=== PATIENT | male | born 1965 | race Two or more races ===

== ENCOUNTER 2017-03-08 08:51 | Emergency (ER) | payer OTHER ==
[~2017-03-08] VITALS: Ht 175.3 cm; Wt 63.5 kg
--- NOTE | ~2017-03-08 | CR243 ---
[facility] A Service of [facility] & [facility] RADIOLOGY TEXT RESULTS PATIENT: ALDA HUANG LOCATION: [facility] : 65 UNIT #: [id number] AGE: [address]: Steven Mae MD SEX: M ORDER DR: [id number] [facility] [address] [place], [place] [address] [id number] E MR#: [id number] Acc #: [id number] NAME: ALDA HUANG : 1965 SEX: M STUDY DATE/TIME: 03/08/2017 10:07 UNIT: [facility] ROOM: STUDY DESCRIPTION: CR Thoracic Spine 3 Views Attending Physician: Steven Mae M.D. Ordering Physician: Steven Mae M.D. Primary Care Physician: No Primary Care Physician MEDICAL IMAGING REPORT This report is preliminary unless electronic signature is present EXAM Thoracic spine. HISTORY Pain in both shoulders and back since fall at work yesterday. FINDINGS AP and lateral examination of the dorsal segment shows normal mineralization and a satisfactory anatomical dorsal kyphosis. All body heights, interspaces, and posterior elements are normal anatomically without any indication of malignancy, trauma, unusual paraspinal soft tissue density mass, or congenital defect. IMPRESSION Normal thoracic spine. Dictated by... Sowmya Saunders M.D. THIS IS AN ELECTRONICALLY VERIFIED REPORT Sowmya Saunders M.D. at 03/08/2017 5:02 PM ROBERTA/rodriguez TD: 03/08/2017 14:38 JOB #: [id number] MEDICAL IMAGING REPORT Page 1 of 1 COPY
--- NOTE | ~2017-03-08 | CR181 ---
[facility] A Service of [facility] & [facility] RADIOLOGY TEXT RESULTS PATIENT: ALDA HUANG LOCATION: [facility] : 65 UNIT #: [id number] AGE: [address]: Steven Mae MD SEX: M ORDER DR: [id number] [facility] [address] [place], [place] [address] [id number] E MR#: [id number] Acc #: [id number] NAME: ALDA HUANG : 1965 SEX: M STUDY DATE/TIME: 03/08/2017 10:07 UNIT: [facility] ROOM: STUDY DESCRIPTION: CR Lumbar Spine 2 or 3 Views Attending Physician: Steven Mae M.D. Ordering Physician: Steven Mae M.D. Primary Care Physician: No Primary Care Physician MEDICAL IMAGING REPORT This report is preliminary unless electronic signature is present EXAM Lumbar spine 3 views HISTORY Fell at work yesterday, back pain. FINDINGS AP and lateral projections of the lumbar segment show good mineralization of both anterior and posterior elements. They are all anatomically normal without indication of fracture, dislocation, or malignant change of a sclerotic or lytic type. There is no congenital defect noted. The sacroiliac joints are normal. IMPRESSION Normal lumbar spine. Dictated by... Sowmya Saunders M.D. THIS IS AN ELECTRONICALLY VERIFIED REPORT Sowmya Saunders M.D. at 03/08/2017 5:02 PM Ector TD: 03/08/2017 14:34 JOB #: [id number] MEDICAL IMAGING REPORT Page 1 of 1 COPY
--- NOTE | ~2017-03-08 | CR230 ---
[facility] A Service of [facility] & [facility] RADIOLOGY TEXT RESULTS PATIENT: ALDA HUANG LOCATION: [facility] : 65 UNIT #: [id number] AGE: [address]: Steven Mae MD SEX: M ORDER DR: [id number] [id number] [place], [place] [address] [id number] E MR#: [id number] Acc #: [id number] NAME: ALDA HUANG : 1965 SEX: M STUDY DATE/TIME: 03/08/2017 10:02 UNIT: [facility] ROOM: STUDY DESCRIPTION: CR Shoulder Min 2 View Rt Attending Physician: Steven Mae M.D. Ordering Physician: Nestor Gonzalez M.D. Primary Care Physician: No Primary Care Physician MEDICAL IMAGING REPORT This report is preliminary unless electronic signature is present EXAM Right shoulder 03/08/2017 INDICATION Pain in the right shoulder since yesterday. Fell at work. TECHNIQUE 3 views of the right shoulder. COMPARISON No comparisons FINDINGS No acute fracture. Mild degenerative change of the AC joint. No shoulder dislocation or shoulder separation. IMPRESSION Mild degenerative change; otherwise negative. Dictated by... Fabrizio John M.D. THIS IS AN ELECTRONICALLY VERIFIED REPORT Fabrizio John M.D. at 03/08/2017 5:19 PM Germania TD: 03/08/2017 15:02 JOB #: [id number] MEDICAL IMAGING REPORT Page 1 of 1 COPY
--- NOTE | ~2017-03-08 | CR229 ---
[facility] A Service of [facility] RADIOLOGY TEXT RESULTS PATIENT: ALDA HUANG LOCATION: [facility] : 65 UNIT #: [id number] AGE: [address]: Steven Mae MD SEX: M ORDER DR: [id number] [facility] [address] [place], [place] [address] [id number] E MR#: [id number] Acc #: [id number] NAME: ALDA HUANG : 1965 SEX: M STUDY DATE/TIME: 03/08/2017 10:06 UNIT: [facility] ROOM: STUDY DESCRIPTION: CR Shoulder Min 2 View Lt Attending Physician: Steven Mae M.D. Ordering Physician: [id number] Linda Mae Primary Care Physician: Primary Care Physician No MEDICAL IMAGING REPORT This report is preliminary unless electronic signature is present EXAM Left shoulder 3 views HISTORY Bilateral shoulder pain since yesterday, fell at work. FINDINGS AP view with internal and external rotation of the shoulder girdle shows satisfactory relationship of the humeral head and glenoid fossa. The joint space is normal. There is no identifiable fracture or dislocation or bony destructive process about the shoulder girdle anatomy. The acromioclavicular joint is normal. There is no radiopaque foreign body in the region. IMPRESSION Normal shoulder. Dictated by... Sowmya Saunders M.D. THIS IS AN ELECTRONICALLY VERIFIED REPORT Sowmya Saunders M.D. at 03/08/2017 5:02 PM ROBERTA/jeremy TD: 03/08/2017 14:33 JOB #: [id number] MEDICAL IMAGING REPORT Page 1 of 1 COPY
== END 2017-03-08 11:50 | disposition home or self-care (01) ==
LOC: CED 08:51
DX: M54.5 Low back pain (principal); M54.6 Pain in thoracic spine; Z88.0 Allergy status to penicillin; W20.8XXA Other cause of strike by thrown, projected or falling object, initial encounter
CPT/HCPCS: 72072; 72100; 73030; 96374; 99283; J1885